=== PATIENT | male | born 1985 | race Caucasian/White ===

== ENCOUNTER 2017-12-27 09:10 | Emergency (ER) | payer MEDICAID ==
[~2017-12-27] VITALS: Ht 165.1 cm; Wt 77.0 kg
[2017-12-27] MEDS ORDERED: TETANUS, DIPHTHERIA, PERTUSSIS VAC/PF 0.5ML (>7YR OLD) IM ONE (10:30)
[2017-12-27] MEDS ORDERED: LIDOCAINE HCL 1% 20ML VIAL (Pyxis) INJ MC ONE (10:30)
[2017-12-27] MEDS ORDERED: BACITRACIN ZINC OINT UDPKT TOP ONE (10:30)
[2017-12-27] MEDS ORDERED: LIDOCAINE HCL/PF 1% 10 MG/ML 5ML VIAL IJ SCH ×2 (10:50→10:52)
[2017-12-27 11:57] VITALS: BP 117/77
== END 2017-12-27 11:58 | disposition home or self-care (01) ==
LOC: ER 09:10
DX: S61.211A Laceration without foreign body of left index finger without damage to nail, initial encounter (principal); W26.0XXA Contact with knife, initial encounter; Y93.G1 Activity, food preparation and clean up; Y92.090 Kitchen in other non-institutional residence as the place of occurrence of the external cause; Y99.8 Other external cause status
CPT/HCPCS: 12001; 90471; 90715; 99283; J3490; X7700; Z7610

== ENCOUNTER 2018-01-03 12:20 | Emergency (ER) | payer MEDICAID ==
[~2018-01-03] VITALS: Ht 165.1 cm; Wt 82.0 kg
[2018-01-03 12:46] VITALS: BP 136/65
== END 2018-01-03 13:19 | disposition home or self-care (01) ==
LOC: ER 13:04
DX: S61.211D Laceration without foreign body of left index finger without damage to nail, subsequent encounter (principal); W18.39XD Other fall on same level, subsequent encounter
CPT/HCPCS: 99281; Z7610